=== PATIENT | female | born 1950 | race Caucasian/White ===

== ENCOUNTER 2020-09-12 09:04 | Outpatient (REF) | payer MEDICARE, SELFPAY ==
[2020-09-12 12:03] LABS: Estimated Average Glucose 134 mg/dL; Hemoglobin A1c % 6.3 %
== END 2020-09-12 09:05 | disposition home or self-care (01) ==
LOC: HO.MANLR 09:04
PROVIDERS: PCP Internal Medicine; Visit Provider Internal Medicine
DX: E11.9 Type 2 diabetes mellitus without complications (principal)
CPT/HCPCS: 83036

== ENCOUNTER 2021-01-12 09:32 | Outpatient (REF) | payer MEDICARE, SELFPAY ==
[2021-01-12 11:44] LABS: Estimated Average Glucose 131 mg/dL; Hemoglobin A1c % 6.2 %
== END 2021-01-12 09:33 | disposition home or self-care (01) ==
LOC: HO.MANLDS 09:32
PROVIDERS: PCP Internal Medicine; Visit Provider Internal Medicine
DX: E11.9 Type 2 diabetes mellitus without complications (principal)
CPT/HCPCS: 36415; 83036

== ENCOUNTER 2021-05-02 08:32 | Outpatient (REF) | payer MEDICARE, SELFPAY ==
[2021-05-02 11:36] LABS: Alanine Aminotransferase 9 U/L (0-31); Albumin Level 4.2 g/dL (3.5-5.0); Alkaline Phosphatase 61 U/L (39-117); Anion Gap 14 (12-20); Aspartate Amino Transferase 12 U/L (5-31); Bilirubin Total 0.4 mg/dL (0.0-1.0); Blood Urea Nitrogen 15 mg/dL (9-16); Calcium 9.5 mg/dL (8.4-10.2); Carbon Dioxide 25 mmol/L (22-29); Chloride 106 mmol/L (96-108); Cholesterol 159 mg/dL; Estimated Glomerular Filt Rate > 60; Glucose Fasting 170 mg/dL (60-99); HDL Cholesterol 60 mg/dL; LDL Cholesterol Calculated 80 mg/dl; Potassium 4.5 mmol/L (3.3-5.1); Sodium 140 mmol/L (135-145); Total Protein 6.8 g/dL (6.5-8.0); Triglycerides 95 mg/dL
[2021-05-02 11:37] LABS: Estimated Average Glucose 151 mg/dL; Hemoglobin A1c % 6.9 %
[2021-05-02 11:54] LABS: Creatinine Urine 32.13 mg/dL; Microalbumin Urine < 5.0 mg/L
== END 2021-05-02 08:33 | disposition home or self-care (01) ==
LOC: HO.MANLDS 08:32
PROVIDERS: PCP Internal Medicine; Visit Provider Internal Medicine
DX: E11.9 Type 2 diabetes mellitus without complications (principal)
CPT/HCPCS: 36415; 80053; 80061; 82043; 83036

== ENCOUNTER 2021-08-06 09:19 | Outpatient (REF) | payer MEDICARE, SELFPAY ==
[2021-08-06 11:27] LABS: Estimated Average Glucose 151 mg/dL; Hemoglobin A1c % 6.9 %
== END 2021-08-06 09:20 | disposition home or self-care (01) ==
LOC: HO.MANLDS 09:19
PROVIDERS: PCP Internal Medicine; Visit Provider Internal Medicine
DX: E11.9 Type 2 diabetes mellitus without complications (principal)
CPT/HCPCS: 36415; 83036

== ENCOUNTER 2021-11-07 09:24 | Outpatient (REF) | payer MEDICARE, SELFPAY ==
[2021-11-07 11:12] LABS: Estimated Average Glucose 157 mg/dL; Hemoglobin A1c % 7.1 %
[2021-11-07 11:31] LABS: Creatinine Urine 21.75 mg/dL; Microalbumin Urine < 5.0 mg/L
[2021-11-07 11:37] LABS: Alanine Aminotransferase 12 U/L (0-31); Albumin Level 4.3 g/dL (3.5-5.0); Alkaline Phosphatase 56 U/L (39-117); Anion Gap 15 (12-20); Aspartate Amino Transferase 13 U/L (5-31); Bilirubin Total 0.3 mg/dL (0.0-1.0); Blood Urea Nitrogen 14 mg/dL (9-16); Calcium 9.7 mg/dL (8.4-10.2); Carbon Dioxide 25 mmol/L (22-29); Chloride 104 mmol/L (96-108); Cholesterol 147 mg/dL; Estimated Glomerular Filt Rate > 60; Glucose Fasting 173 mg/dL (60-99); HDL Cholesterol 51 mg/dL; LDL Cholesterol Calculated 76 mg/dl; Potassium 4.5 mmol/L (3.3-5.1); Sodium 139 mmol/L (135-145); Total Protein 6.8 g/dL (6.5-8.0); Triglycerides 104 mg/dL
== END 2021-11-07 09:25 | disposition home or self-care (01) ==
LOC: HO.MANLDS 09:24
PROVIDERS: PCP Internal Medicine; Visit Provider Internal Medicine
DX: E11.9 Type 2 diabetes mellitus without complications (principal)
CPT/HCPCS: 36415; 80053; 80061; 82043; 83036

== ENCOUNTER 2022-03-08 10:00 | Outpatient (REF) | payer MEDICARE, SELFPAY ==
[2022-03-08 11:16] LABS: Estimated Average Glucose 163 mg/dL; Hemoglobin A1c % 7.3 %
[2022-03-08 11:50] LABS: Alanine Aminotransferase 14 U/L (0-31); Albumin Level 4.2 g/dL (3.5-5.0); Alkaline Phosphatase 70 U/L (39-117); Anion Gap 13 (12-20); Aspartate Amino Transferase 14 U/L (5-31); Bilirubin Total 0.4 mg/dL (0.0-1.0); Blood Urea Nitrogen 17 mg/dL (9-16); Calcium 9.6 mg/dL (8.4-10.2); Carbon Dioxide 26 mmol/L (22-29); Chloride 104 mmol/L (96-108); Cholesterol 164 mg/dL; Estimated Glomerular Filt Rate > 60; Glucose Fasting 192 mg/dL (60-99); HDL Cholesterol 47 mg/dL; LDL Cholesterol Calculated 99 mg/dl; Potassium 4.7 mmol/L (3.3-5.1); Sodium 138 mmol/L (135-145); Total Protein 6.8 g/dL (6.5-8.0); Triglycerides 91 mg/dL
== END 2022-03-08 10:01 | disposition home or self-care (01) ==
LOC: HO.MANLDS 10:00
PROVIDERS: PCP Internal Medicine; Visit Provider Internal Medicine
DX: E11.9 Type 2 diabetes mellitus without complications (principal)
CPT/HCPCS: 36415; 80053; 80061; 83036

== ENCOUNTER → 2022-03-27 10:52 | Outpatient (REF) | payer MEDICARE, SELFPAY ==
--- NOTE | 2022-03-27 11:06 | HM_ITS ---
TEST PERFORMED: Cardiac event monitoring. ENROLLMENT PERIOD: 03/27/2022, to 04/26/2022; 30 days. REQUESTING PHYSICIAN: Dr. Morley FINDINGS: In the above monitoring period, underlying rhythm is sinus. Rates ranged from 63 to 128 beats per minute. Isolated PVC noted. Otherwise, no significant arrhythmias. CONCLUSION: Study shows sinus rhythm, sinus tachycardia, isolated PVC. No patient symptoms. (report delayed as preliminary data not available till the time of this report) Efrain Rodríguez MD HS/LALO / [id number] MTDD
== END ==
LOC: HO.CARD 10:52
PROVIDERS: Visit Provider Internal Medicine
DX: R55 Syncope and collapse (principal)
CPT/HCPCS: 93270

== ENCOUNTER 2022-06-12 08:42 | Outpatient (REF) | payer MEDICARE, SELFPAY ==
[2022-06-12 11:25] LABS: Estimated Average Glucose 154 mg/dL
== END 2022-06-12 08:43 | disposition home or self-care (01) ==
LOC: HO.MANLDS 08:42
PROVIDERS: Visit Provider Internal Medicine
DX: E11.9 Type 2 diabetes mellitus without complications (principal)
CPT/HCPCS: 36415; 83036

== ENCOUNTER 2022-09-24 08:48 | Outpatient (REF) | payer MEDICARE, SELFPAY ==
[2022-09-24 11:30] LABS: Estimated Average Glucose 180 mg/dL; Hemoglobin A1c % 7.9 %
[2022-09-24 13:23] LABS: Alanine Aminotransferase 15 U/L (0-31); Albumin Level 4.3 g/dL (3.5-5.0); Alkaline Phosphatase 74 U/L (39-117); Anion Gap 14 (12-20); Aspartate Amino Transferase 14 U/L (5-31); Bilirubin Total 0.3 mg/dL (0.0-1.0); Blood Urea Nitrogen 13 mg/dL (9-16); Calcium 9.6 mg/dL (8.4-10.2); Carbon Dioxide 27 mmol/L (22-29); Chloride 103 mmol/L (96-108); Cholesterol 149 mg/dL; Estimated Glomerular Filt Rate > 60; Glucose Random 223 mg/dL (60-115); HDL Cholesterol 48 mg/dL; LDL Cholesterol Calculated 73 mg/dl; Potassium 4.8 mmol/L (3.3-5.1); Sodium 139 mmol/L (135-145); Total Protein 6.7 g/dL (6.5-8.0); Triglycerides 141 mg/dL
== END 2022-09-24 08:49 | disposition home or self-care (01) ==
LOC: HO.MANLDS 08:48
PROVIDERS: Visit Provider Internal Medicine
DX: E11.9 Type 2 diabetes mellitus without complications (principal)
CPT/HCPCS: 36415; 80053; 80061; 83036

== ENCOUNTER 2022-12-13 09:13 | Outpatient (REF) | payer MEDICARE, SELFPAY ==
[2022-12-13 12:15] LABS: Estimated Average Glucose 197 mg/dL; Hemoglobin A1c % 8.5 %
== END 2022-12-13 09:14 | disposition home or self-care (01) ==
LOC: HO.MANLDS 09:13
PROVIDERS: Visit Provider Internal Medicine
DX: E11.9 Type 2 diabetes mellitus without complications (principal)
CPT/HCPCS: 36415; 83036

== ENCOUNTER 2023-02-11 11:34 | Outpatient (REF) | payer MEDICARE, SELFPAY ==
[2023-02-11 13:52] LABS: MANUAL DIFF FLAG NO
[2023-02-11 14:12] LABS: Basophils Percent Auto 0.3 % (0-2); Eosinophils Percent Auto 0.5 % (0-4); Hematocrit 39.4 % (37.0-47.0); Hemoglobin 12.3 g/dl (12.0-16.0); Imm Gran Abs Auto 0.02 X10*3/uL (0.00-0.03); Imm Gran Pct Auto 0.3 % (0.0-0.4); Lymphocytes Absolute Auto 1.3 X10*3/uL (1.2-4.9); Lymphocytes Percent Auto 19.9 % (20-40); Mean Corpuscular HGB Conc 31.2 g/dl (31.0-35.0); Mean Corpuscular Hemoglobin 30.1 pg (27.0-33.0); Mean Corpuscular Volume 96.3 fL (80.0-98.0); Mean Platelet Volume 10.3 fL (9.4-12.3); Monocytes Absolute Auto 0.3 X10*3/uL (0.1-1.2); Monocytes Percent Auto 4.9 % (2-11); Neutrophils Absolute Auto 4.9 x10*3/uL (2.0-8.3); Neutrophils Percent Auto 74.1 % (45-73); Platelet Count 261 X10*3/uL (160-400); Red Blood Count 4.09 X10*6/uL (4.20-5.50); Red Cell Distribution Width 14.3 % (11.0-16.0); White Blood Count 6.6 X10*3/uL (4.8-10.8)
[2023-02-11 14:20] LABS: Estimated Average Glucose 157 mg/dL; Hemoglobin A1c % 7.1 %
[2023-02-11 15:00] LABS: Iron 62 mcg/dL (30-160); Percent Iron Saturation 20 % (15-50); Total Iron Binding Capacity 312 mcg/dL (228-428); Unsaturated Iron Binding 250 ug/dL
[2023-02-11 15:09] LABS: Ferritin 118 ng/mL (10-250)
== END 2023-02-11 11:35 | disposition home or self-care (01) ==
LOC: HO.MANLDS 11:34
PROVIDERS: Visit Provider Internal Medicine
DX: E11.9 Type 2 diabetes mellitus without complications (principal); D64.9 Anemia, unspecified
CPT/HCPCS: 36415; 82728; 83036; 83540; 85025

== ENCOUNTER 2023-05-05 09:09 | Outpatient (REF) | payer MEDICARE, SELFPAY ==
[2023-05-05 14:12] LABS: Alanine Aminotransferase 12 U/L (0-31); Albumin Level 4.3 g/dL (3.5-5.0); Alkaline Phosphatase 71 U/L (39-117); Anion Gap 14 (12-20); Aspartate Amino Transferase 14 U/L (5-31); Bilirubin Total 0.3 mg/dL (0.0-1.0); Blood Urea Nitrogen 14 mg/dL (9-16); Carbon Dioxide 26 mmol/L (22-29); Chloride 105 mmol/L (96-108); Cholesterol 174 mg/dL; Estimated Glomerular Filt Rate > 60; Glucose Random 190 mg/dL (60-115); HDL Cholesterol 42 mg/dL; LDL Cholesterol Calculated 107 mg/dl; Potassium 4.5 mmol/L (3.3-5.1); Sodium 140 mmol/L (135-145); Total Protein 7.3 g/dL (6.5-8.0); Triglycerides 129 mg/dL
[2023-05-05 14:14] LABS: Estimated Average Glucose 163 mg/dL; Hemoglobin A1c % 7.3 %
== END 2023-05-05 09:10 | disposition home or self-care (01) ==
LOC: HO.MANLDS 09:09
PROVIDERS: Visit Provider Internal Medicine
DX: E11.9 Type 2 diabetes mellitus without complications (principal); D64.9 Anemia, unspecified
CPT/HCPCS: 36415; 80053; 80061; 83036

== ENCOUNTER 2023-08-04 12:00 | Outpatient (REF) | payer MEDICARE, SELFPAY ==
[2023-08-04 13:58] LABS: Estimated Average Glucose 157 mg/dL; Hemoglobin A1c % 7.1 % (<6.0)
== END 2023-08-04 12:01 | disposition home or self-care (01) ==
LOC: HO.MANLDS 12:00
PROVIDERS: Visit Provider Internal Medicine
DX: E11.9 Type 2 diabetes mellitus without complications (principal); D64.9 Anemia, unspecified
CPT/HCPCS: 36415; 83036

== ENCOUNTER 2023-10-29 08:46 | Outpatient (REF) | payer MEDICARE, SELFPAY ==
[2023-10-29 14:10] LABS: Estimated Average Glucose 166 mg/dL; Hemoglobin A1c % 7.4 % (<6.0)
[2023-10-29 14:17] LABS: Alanine Aminotransferase 17 U/L (0-31); Albumin Level 4.4 g/dL (3.5-5.0); Alkaline Phosphatase 71 U/L (39-117); Anion Gap 11 (12-20); Aspartate Amino Transferase 16 U/L (5-31); Bilirubin Total 0.4 mg/dL (0.0-1.0); Blood Urea Nitrogen 19 mg/dL (9-16); Calcium 9.4 mg/dL (8.4-10.2); Carbon Dioxide 26 mmol/L (22-29); Chloride 105 mmol/L (96-108); Cholesterol 164 mg/dL (<200); Estimated Glomerular Filt Rate > 60; Glucose Random 194 mg/dL (60-115); HDL Cholesterol 54 mg/dL (>40); LDL Cholesterol Calculated 93 mg/dL (<100); Sodium 138 mmol/L (135-145); Total Protein 7.3 g/dL (6.5-8.0); Triglycerides 85 mg/dL (<150)
== END 2023-10-29 08:47 | disposition home or self-care (01) ==
LOC: HO.MANLDS 08:46
PROVIDERS: Visit Provider Internal Medicine
DX: E11.9 Type 2 diabetes mellitus without complications (principal); D64.9 Anemia, unspecified
CPT/HCPCS: 36415; 80053; 80061; 83036

== ENCOUNTER 2024-02-19 06:55 | Outpatient (REF) | payer MEDICARE, SELFPAY ==
--- NOTE | ~2024-02-19 | MR_ITS ---
EXAMINATION: MR KNEE WITHOUT CONTRAST, RIGHT CLINICAL INFORMATION: Acute pain swelling buckling of joint meniscal tear. COMPARISON: None available. TECHNIQUE: MRI of the knee without contrast was performed using routine sequences on a high-field scanner. FINDINGS: MENISCI: Medial Meniscus: Intact Lateral Meniscus: Intact LIGAMENTS: Cruciate: Intact Collateral: Intact EXTENSOR MECHANISM: Intact ARTICULAR CARTILAGE/BONE: Patellofemoral Compartment: Normal Medial Compartment: Normal Lateral Compartment: Normal JOINT FLUID AND BURSAE: Trace Beverly's cyst MR/MR knee RT wo con IMPRESSION: Trace Beverly's cyst. Menisci intact.
== END 2024-02-19 06:56 | disposition home or self-care (01) ==
LOC: HO.MRI 06:55
PROVIDERS: PCP Internal Medicine; Visit Provider Physician Assistant
DX: M25.561 Pain in right knee (principal)
CPT/HCPCS: 73721

== ENCOUNTER 2024-03-01 09:05 | Outpatient (REF) | payer MEDICARE, SELFPAY ==
[2024-03-01 13:44] LABS: Estimated Average Glucose 171 mg/dL; Hemoglobin A1c % 7.6 % (<6.0)
== END 2024-03-01 09:06 | disposition home or self-care (01) ==
LOC: HO.MANLDS 09:05
PROVIDERS: Visit Provider Internal Medicine
DX: E11.9 Type 2 diabetes mellitus without complications (principal)
CPT/HCPCS: 36415; 83036

== ENCOUNTER 2024-07-07 09:25 | Outpatient (REF) | payer MEDICARE, SELFPAY ==
[2024-07-07 12:59] LABS: Alanine Aminotransferase 19 U/L (0-31); Albumin Level 4.3 g/dL (3.5-5.0); Alkaline Phosphatase 60 U/L (39-117); Anion Gap 14 (12-20); Aspartate Amino Transferase 18 U/L (5-31); Bilirubin Total 0.4 mg/dL (0.0-1.0); Blood Urea Nitrogen 13 mg/dL (9-16); Calcium 9.6 mg/dL (8.4-10.2); Carbon Dioxide 26 mmol/L (22-29); Chloride 106 mmol/L (96-108); Cholesterol 169 mg/dL (<200); Estimated Glomerular Filt Rate > 60; Glucose Random 178 mg/dL (60-115); HDL Cholesterol 52 mg/dL (>40); LDL Cholesterol Calculated 90 mg/dL (<100); Potassium 4.4 mmol/L (3.3-5.1); Sodium 142 mmol/L (135-145); Total Protein 7.1 g/dL (6.5-8.0); Triglycerides 139 mg/dL (<150)
[2024-07-07 13:20] LABS: Creatinine Urine 16.44 mg/dL; Microalbumin Urine < 5.0 mg/L
[2024-07-07 15:39] LABS: Estimated Average Glucose 169 mg/dL; Hemoglobin A1c % 7.5 % (<6.0)
== END 2024-07-07 09:26 | disposition home or self-care (01) ==
LOC: HO.MANLDS 09:25
PROVIDERS: Visit Provider Internal Medicine
DX: E11.9 Type 2 diabetes mellitus without complications (principal)
CPT/HCPCS: 36415; 80053; 80061; 82043; 82570; 83036

== ENCOUNTER 2024-11-22 09:22 | Outpatient (REF) | payer MEDICARE, SELFPAY ==
[2024-11-22 13:36] LABS: Estimated Average Glucose 171 mg/dL; Hemoglobin A1C 241.3174 umol/L; Hemoglobin A1c % 7.6 % (<6.0); Total Hemoglobin (HGBA1C) 4076.4689 umol/L
[2024-11-22 13:58] LABS: Alanine Aminotransferase 21 U/L (0-31); Albumin Level 4.4 g/dL (3.5-5.0); Alkaline Phosphatase 81 U/L (39-117); Anion Gap 14 (12-20); Aspartate Amino Transferase 25 U/L (5-31); Bilirubin Total 0.4 mg/dL (0.0-1.0); Blood Urea Nitrogen 15 mg/dL (9-16); Calcium 9.4 mg/dL (8.4-10.2); Carbon Dioxide 22 mmol/L (22-29); Chloride 110 mmol/L (96-108); Cholesterol 158 mg/dL (<200); Estimated Glomerular Filt Rate > 60; Glucose Random 167 mg/dL (60-115); HDL Cholesterol 54 mg/dL (>40); LDL Cholesterol Calculated 89 mg/dL (<100); Potassium 4.2 mmol/L (3.3-5.1); Sodium 142 mmol/L (135-145); Total Protein 7.6 g/dL (6.5-8.0); Triglycerides 78 mg/dL (<150)
== END 2024-11-22 09:23 | disposition home or self-care (01) ==
LOC: HO.MANLDS 09:22
PROVIDERS: Visit Provider Internal Medicine
DX: E11.9 Type 2 diabetes mellitus without complications (principal)
CPT/HCPCS: 36415; 80053; 80061; 82043; 82570; 83036

== ENCOUNTER 2025-03-09 09:06 | Outpatient (REF) | payer MEDICARE, SELFPAY ==
[2025-03-09 13:37] LABS: Estimated Average Glucose 186 mg/dL; Hemoglobin A1C 238.7847 umol/L; Hemoglobin A1c % 8.1 % (<6.0); Total Hemoglobin (HGBA1C) 3647.7639 umol/L
== END 2025-03-09 09:07 | disposition home or self-care (01) ==
LOC: HO.MANLDS 09:06
PROVIDERS: Visit Provider Internal Medicine
DX: E11.9 Type 2 diabetes mellitus without complications (principal)
CPT/HCPCS: 36415; 83036

== ENCOUNTER 2025-07-26 09:25 | Outpatient (REF) | payer MEDICARE, SELFPAY ==
--- OUTSIDE RECORDS SUMMARY | 2025-07-26 10:22 | XMS_ITS | Encounter Summary ---
Author Organization [facility] Address [address] [place] [address] [place] [address] Phone Care Team Providers Care Beater Lead Name Role Phone Isael Morley DO Unavailable Spencer Lewis MD Unavailable [phone] Paresh Montaño MD Unavailable [phone] Arik Peña PA-C Unavailable [phone] Ray Tong MD Unavailable [phone] Isael Morlye DO Primary Care Provider [phone] Reason for Referral * Outpatient Procedure - Closed Specialty Diagnoses / Procedures Referred By Jillian vance Referred To Contact Radiology Diagnoses Chondrocostal junction syndrome Procedures NM Bone Scan Limited Isael Morley DO Phone: tel: fax: [email or web address] Referral ID Status Reason Start Date Expiration Date Visits Re quested Visits Authorized [id number] Closed 01/23/2018 01/23/2019 1 1 Encounter Details Date Type Department Care Team (Late st Contact Info) Description 01/23/2018 Ancillary Orders Virtual Department [address] [place] [address] Isael Morley DO [address] [facility] [place] [address] [email or web address] Chondrocostal junction syndrome Social History Tobacco Use Types Packs/Day Years Used Date Smoking Tobacco: Former Smokeless Tobacco: Never Alcohol Use Standard Drinks/Week Comments Yes 0 (1 standard drink = 0.6 oz pur e alcohol) Comments Unknown Sex and Gender Information Value Date Recorded Sex Assigned at Not on file Legal Sex Female 10:03 PM EDT Gender Identity Not on file Sexual Orientation Not on file documented as of this encounter Plan of Treatment Upcoming Encounters Date Type Department Care Team (Late st Contact Info) Description 09/14/2025 11:00 AM EST Office Visit [facility] [address] [facility] 3rd Floor, [address] [place] [address] Spencer Lewis MD [address] [facility], [address] [place] [address] [email or web address], [employer] documented as of this encounter Results * NM Bone Scan Limited (02/04/2018 2:38 PM EDT) Anatomical Region Laterality Modality Shoulder Right, Shoulder Lef t, Arm Left, Arm Right, Elbow Left, Elbow Right, Forearm Left, Forearm Right, Wrist Right, Wrist Left, Hand Left, Hand Right, Hip Left, Hip Right, Hip Bilateral, Thigh Left, Thigh Right, Knee Left, Knee Right, Knee Bilateral, Leg Left, Leg Right, Ankle Left, Ankle Right, Foot Left, Foot Right, Pelvis Nucle ar Medicine 02/04/2018 3:29 PM EDT Impressions 02/04/2018 4:46 PM EDT No scintigraphic abnormality involving the ribs. POS [id number] Edited by: Sarah Coleman on 02/04/2018 3:52 PM Narrative 02/04/2018 4:46 PM EDT HISTORY: Occasional bilateral rib pain when bending over, symptoms for 2 years. Now with severe bilateral rib pain for one month. No known injury. No previous cancer history. COMPARISON: None CORRELATION: Rib radiographs 01/06/2018 DOSE: 24 mCi of Tc-99m Medronate FINDINGS: Three-hour delayed imaging is performed. Images are obtained in anterior, posterior, lateral, and oblique positions. No abnormal uptake within the ribs. Minimal heterogeneous uptake within the thoracic spine which corresponds with degenerative changes on radiography. There is also stable thoracic kyphosis. Two functioning kidneys are present. Procedure Note Darlene Gonzalez MD - 02/04/2018 HISTORY: Occasional bilateral rib pain when bending over, symptoms for 2years. Now with severe bilateral rib pain for one month. No knowninjury. No previous cancer history. COMPARISON: None CORRELATION: Rib radiographs 01/06/2018 DOSE: 24 mCi of Tc-99m Medronate FINDINGS: Three-hour delayed imaging is performed. Images are obtained in anterior,posterior, lateral, and oblique positions. No abnormal uptake within the ribs. Minimal heterogeneous uptake withinthe thoracic spine which corresponds with degenerative changes onradiography. There is also stable thoracic kyphosis. Two functioningkidneys are present. IMPRESSION: No scintigraphic abnormality involving the ribs. 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 documented in this encounter Care Teams Beater Lead Relationship Specialty Start Date End Date Isael Morley DO PCP - General 07/31/17 Isael Morley DO Historical LMR Provider 07/30/17 Spencer Lewis MD [address] [place] [address], [facility] [address] [place] [address] Historical LMR Provider 07/30/17 Paresh Montaño MD [address] [place] [address] Historical LMR Provider 07/30/17 Arik Peña PA-C [address] [place] [address] [facility], [place] [address] [email or web address] Historical LMR Provider 07/30/17 10/20/21 Ray Tong MD [address] [place] [address] Historical LMR Provider 07/30/17 2 documented as of this encounter Additional Source Comments The information contained in this document represents components of the legal health record. It is not the complete legal health record.[facility]
--- OUTSIDE RECORDS SUMMARY | 2025-07-26 10:22 | XMS_ITS | Encounter Summary ---
Author Organization [facility] Address [address] [place] [address] [place] [address] Phone Care Team Providers Care Associate Genetics Professor Name Role Phone Isael Morley DO Unavailable Spencer Lewis MD Unavailable [phone] Paresh Montaño MD Unavailable [phone] Arik Peña PA-C Unavailable [phone] Ray Tong MD Unavailable [phone] Isael Morley DO Primary Care Provider [phone] Encounter Details Date Type Department Care Team (Late st Contact Info) Description 05/30/2020 Procedure Pass [facility], [address] [address] Social History Tobacco Use Types Packs/Day Years Used Date Smoking Tobacco: Former Smokeless Tobacco: Never Alcohol Use Standard Drinks/Week Comments Yes 0 (1 standard drink = 0.6 oz pur e alcohol) Comments No Sex and Gender Information Value Date Recorded Sex Assigned at Not on file Legal Sex Female 10:03 PM EDT Gender Identity Not on file Sexual Orientation Not on file documented as of this encounter Plan of Treatment Upcoming Encounters Date Type Department Care Team (Late st Contact Info) Description 09/14/2025 11:00 AM EST Office Visit [facility] [address] [place] [address] 3rd Floor, [address] [place] [phone] Spencer Lewis MD 22 [facility], [address] [phone] documented as of this encounter Visit Diagnoses Not on filedocumented in this encounter Care Teams Associate Genetics Professor Relationship Specialty Start Date End Date Peyman Isael BarajasDO PCP - General 07/31/17 Isael Morley DO Historical LMR Provider 07/30/17 Spencer Lewis MD [address] [place] [address] [email or web address] Historical LMR Provider 07/30/17 Paresh Montaño MD [address] [place] [address] Historical LMR Provider 07/30/17 Arik Peña PA-C [address] [place] [address] [facility] Medicine, [place] [address] [email or web address] Historical LMR Provider 07/30/17 10/20/21 Ray Tong MD [address] [place] [address] Historical LMR Provider 07/30/17 2 documented as of this encounter Additional Source Comments The information contained in this document represents components of the legal health record. It is not the complete legal health record.[facility]
--- OUTSIDE RECORDS SUMMARY | 2025-07-26 10:22 | XMS_ITS | Encounter Summary ---
Author Organization [facility] Address [address] [place] [address] [place] [address] Phone Care Team Providers Care Personnel Assistant Name Role Phone Isael Morley DO Unavailable Spencer Lewis MD Unavailable [phone] Paresh Montaño MD Unavailable [phone] Arik Peña PA-C Unavailable [phone] Ray Tong MD Unavailable [phone] Isael Morley DO Primary Care Provider [phone] Encounter Details Date Type Department Care Team (Late st Contact Info) Description 05/30/2020 Procedure Pass [facility], [address] [address] Social History Tobacco Use Types Packs/Day Years [...] Description 09/14/2025 11:00 AM EST Office Visit [facility] [address] [place] [address] 3rd Floor, [address] [place] [address] [phone] Spencer Lewis MD 22 [facility], [address] [phone] documented as of this encounter Visit Diagnoses Not on filedocumented in this encounter Care Teams Personnel Assistant Relationship Specialty Start Date End Date Peyman Isael BarajasDO PCP - General 07/31/17 Isael Morley DO Historical LMR Provider 07/30/17 Spencer Lewis MD [address] [place] [address] [email or web address] Historical LMR Provider 07/30/17 Paresh Montaño MD [address] [place] [address] Historical LMR Provider 07/30/17 Arik Peña PA-C [address] [place] [address] [facility] Medicine, [place] [address] [email or web address] Historical LMR Provider 07/30/17 10/20/21 Ray Tong MD [address] [place] [address] Historical LMR Provider 07/30/17 2 documented as of this encounter Additional Source Comments The information contained in this document represents components of the legal health record. It is not the complete legal health record.[facility]
--- OUTSIDE RECORDS SUMMARY | 2025-07-26 10:22 | XMS_ITS | Encounter Summary ---
Author Organization [facility] Address [address] [facility] [address] [place] [address] Phone Care Team Providers Care Waiter/Waitress Cabin Class Name Role Phone Isael Morley DO Unavailable Spencer Lewis MD Unavailable [phone] Paresh Montaño MD Unavailable [phone] Arik Peña PA-C Unavailable [phone] Ray Tong MD Unavailable [phone] Isael Morley DO Primary Care Provider [phone] Encounter Details Date Type Department Care Team (Late st Contact Info) Description 01/06/2018 Ancillary Orders [facility], X-Ray - [address] [phone] Isael Morley DO [address] [facility] [place], [place] [phone] [email or web address] Rib pain Social History Tobacco Use Types Packs/Day Years [...] Description 09/14/2025 11:00 AM EST Office Visit [facility] [address] [place] [address] 3rd Floor, [address] [place], [place] [phone] Spencer Lewis MD [address] [place] [address], [address] [place] [address] [email or web address] documented as of this encounter Results * XR RIBS 3 VIEW (BILATERAL) (01/06/2018 1:25 PM EDT) Anatomical Region Laterality Modality Chest Radiographic Eufemia ging 01/06/2018 1:28 PM EDT Addenda Addendum by Daniel Cuellar MD on 01/26/2018 10:48 AM EDT COMPARISON: None. FINDINGS: Nine views of the ribs are obtained. Images of both left and right ribs are present. No complication of an occult rib injury is seen. No rib deformity or acute bony injury is seen. No destructive process of bone is evident. IMPRESSION: Unremarkable evaluation of the ribs. No <<< EXPLANATION >>> for chest wall pain is seen on either side. S/S: Bilateral chest wall/rib pain x2 years, no trauma. POS - [id number] Edited by: Rosa Francisco on 01/26/2018 9:46 AM Impressions 01/06/2018 1:37 PM EDT Unremarkable evaluation of the ribs. No expiration for chest wall pain is seen on either side. S/S: Bilateral chest wall/rib pain x2 years, no trauma POS - [id number] Narrative 01/06/2018 1:37 PM EDT COMPARISON: None FINDINGS: 9 views of the ribs are obtained. Images of both left and right ribs are present. No complication of an occult rib injury is seen. No rib deformity or acute bony injury is seen. No destructive process of bone is evident. Procedure Note Daniel Cuellar MD - 01/06/2018 COMPARISON: None FINDINGS: 9 views of the ribs are obtained. Images of both left and right ribs arepresent. No complication of an occult rib injury is seen. No rib deformity or acute bony injury is seen. No destructive process ofbone is evident. IMPRESSION: Unremarkable evaluation of the ribs. No expiration for chest wall pain isseen on either side. S/S: Bilateral chest wall/rib pain x2 years, no trauma POS - [id number] us Isael Morley DO IMG XR CHEST Edited Result - Final documented in this encounter Visit Diagnoses Diagnosis Rib pain Unspecified chest pain Rib pain Unspecified chest pain documented in this encounter Care Teams Waiter/Waitress Cabin Class Relationship Specialty Start Date End Date Isael Morley DO PCP - General 07/31/17 Isael Morley DO Historical LMR Provider 07/30/17 Spencer Lewis MD [address] [place] [address] Historical LMR Provider 07/30/17 Paresh Montaño MD [address] [place] [address] Historical LMR Provider 07/30/17 Arik Peña PA-C [address] [place] [address] [facility] Medicine, [place] [address] Historical LMR Provider 07/30/17 10/20/21 Ray Tong MD [address] [place] [address] Historical LMR Provider 07/30/17 2 documented as of this encounter Additional Source Comments The information contained in this document represents components of the legal health record. It is not the complete legal health record.[facility]
--- OUTSIDE RECORDS SUMMARY | 2025-07-26 10:22 | XMS_ITS | Encounter Summary ---
Author Organization [facility] Address [address] [facility] [address] [place] [address] Phone Care Team Providers Care Well Tender Name Role Phone Isael Morley DO Unavailable Spencer Lewis MD Unavailable [phone] Paresh Montaño MD Unavailable [phone] Arik Peña PA-C Unavailable [phone] Ray Tong MD Unavailable [phone] Isael Morley DO Primary Care Provider [phone] Encounter Details Date Type Department Care Team (Latest Contact Info) Description 03/10/2018 Transcribe Orders [facility] [address] [place] [address] [phone] Suhas Gongora, DO [address] [place] [address] [email or web address] Polyarthropathy (Primary Dx) Social History Tobacco Use Types Packs/Day Years [...] Description 09/14/2025 11:00 AM EST Office Visit [facility] [address] [place] [address] 3rd Floor, [address] [place], [place] [phone] Spencer Lewis MD [address] [facility], [address] [place] [address] [email or web address] documented as of this encounter Results * (ABNORMAL) Basic metabolic panel (03/10/2018 9:41 AM EDT) SODIUM 138 133 - 146 mmol/L [facility] CHLORIDE 99 96 - 108 mmol/L [facility] POTASSIUM 4.7 3.3 - 5.1 mmol/L [facility] CO2 26 21 - 35 mmol/L [facility] BUN 18 6 - 19 mg/dL [facility] CREATININE 0.80 0.5 - 1.5 mg/dL [facility] GLUCOSE 234(H) 70 - 99 mg/dL [facility] CALCIUM 9.8 8.4 - 10.3 mg/dL [facility] EGFR 76 >59 mL/min/1.7 3m2 [facility] Comment:If patient is black, multiply result by 1.159. The eGFR calculation has changed from the MDRD equation to the CKD-EPI equation as of December 16, 2017. ANION GAP 18 10 - 20 mmol/L [facility] Blood 03/10/2018 9:41 AM EDT 03/10/2018 10:22 AM EDT us Suhas Gongora DO LAB BLOOD ORDERABLES Final R esult [facility] [address] [place] [address] * CBC and differential (03/10/2018 9:41 AM EDT) WBC 6.97 3.40 - 11.20 K/uL [facility] RBC 4.76 3.80 - 4.80 M/uL [facility] HGB 14.2 12.0 - 15.0 g/dL [facility] HCT 43.8 36.0 - 46.0 % [facility] PLT 273 130 - 400 K/uL [facility] MCV 92.0 79.0 - 98.0 fL [facility] MCH 29.8 27.0 - 34.8 pg [facility] MCHC 32.4 31.5 - 36.0 g/dL [facility] RDW 12.8 10.8 - 14.6 % [facility] MPV 9.9 9.4 - 12.4 [facility] NRBC 0.00 /100 WBCs [facility] ABSOLUTE NRBC 0.00 K/uL [facility] DIFF METHOD Auto [facility] NEUTS 67.7 45.30 - 77.70 % [facility] LYMPHS 25.7 12.30 - 39.70 % [facility] MONOS 5.2 4.10 - 12.80 % [facility] EOS 0.7 0 - 7.2 % [facility] BASOS 0.4 0 - 2.80 % [facility] Granulocytes, immature (%) 0.3 0.0 - 0.9 % [facility] ABSOLUTE NEUTS 4.72 1.40 - 7.70 K/uL [facility] ABSOLUTE LYMPHS 1.79 0.60 - 3.20 K/uL [facility] ABSOLUTE MONOS 0.36 0.11 - 0.59 K/uL [facility] ABSOLUTE EOS 0.05 0.01 - 0.50 K/uL [facility] ABSOLUTE BASOS 0.03 0.00 - 0.08 K/uL [facility] Granulocytes, immature 0.02 0.00 - 0.05 K/uL [facility] Blood 03/10/2018 9:41 AM EDT 03/10/2018 10:22 AM EDT us Suhas Gongora DO LAB BLOOD ORDERABLES Final R esult [facility] [address] [place] [address] * Rheumatoid factor (03/10/2018 9:41 AM EDT) RHEUMATOID FACTOR <10.0 0.0 - 14.0 IU/ml [facility] Blood 03/10/2018 9:41 AM EDT 03/10/2018 10:22 AM EDT Suhas Gongora DO LAB BLOOD ORDERABLES Final R esult Performing Organization Address City/[facility]/ZIP Co de Phone Number [address] [address] * Antinuclear antibody (LAURI) (03/10/2018 9:41 AM EDT) LAURI SCREEN ON HEP 2 Negative Negative [facility] Blood 03/10/2018 9:41 AM EDT 03/10/2018 10:22 AM EDT Suhas Gongora DO LAB BLOOD ORDERABLES Final R esult Performing Organization Address [facility] Co de Phone Number [address] [address] * CCP IgG antibodies (03/10/2018 9:41 AM EDT) CCP AB, S <15.6 <20.0 (Negative) U [facility] DPT OF LAB MED AND PAT+ Blood 03/10/2018 9:41 AM EDT 03/10/2018 10:22 AM EDT Suhas Gongora DO LAB BLOOD ORDERABLES Final R esult Performing Organization Address [facility] Co de Phone Number [facility] DPT OF LAB MED AND PAT+ [address] [place] [address] * C-Reactive Protein (03/10/2018 9:41 AM EDT) C REACTIVE PROTEIN 1.6 0.0 - 4.0 mg/L [facility] Comment:New Reference Range and Measuring Units effective 02/25/18. Blood 03/10/2018 9:41 AM EDT 03/10/2018 10:22 AM EDT Suhas Gongora DO LAB BLOOD ORDERABLES Final R esult Performing Organization Address City/[facility]/ZIP Co de Phone Number [address] [address] * Sedimentation rate (ESR) (03/10/2018 9:41 AM EDT) ESR 8 0 - 30 mm/h [facility] Blood 03/10/2018 9:41 AM EDT 03/10/2018 10:22 AM EDT us Suhas Gongora DO LAB BLOOD ORDERABLES Final R esult [facility] [address] [place] [address] documented in this encounter Visit Diagnoses Diagnosis Polyarthropathy- Primary Unspecified polyarthropathy or polyarthritis, site unspecified documented in this encounter Care Teams Well Tender Relationship Specialty Start Date End Date Isael Morley DO PCP - General 07/31/17 Isael Morley DO Historical LMR Provider 07/30/17 Spencer Lewis MD [address] [place] [address] Historical LMR Provider 07/30/17 Paresh Montaño MD [address] [place] [address] Historical LMR Provider 07/30/17 Arik Peña PA-C [address] [place] [address] Orthopedics & Sports Medicine, [facility] [place] [address] Historical LMR Provider 07/30/17 10/20/21 Ray Tong MD [address] [place] [address] [place] [address] Historical LMR Provider 07/30/17 2 documented as of this encounter Additional Source Comments The information contained in this document represents components of the legal health record. It is not the complete legal health record.[facility]
--- OUTSIDE RECORDS SUMMARY | 2025-07-26 10:24 | XMS_ITS | Encounter Summary ---
Author Organization [facility] Address [address] [place] [address] [place] [address] Phone Care Team Providers Care Valve Liner Rubber Name Role Phone Isael Morley DO Unavailable Spencer Lewis MD Unavailable [phone] Paresh Montaño MD Unavailable [phone] Arik Peña PA-C Unavailable [phone] Ray Tong MD Unavailable [phone] Isael Morley DO Primary Care Provider [phone] Encounter Details Date Type Department Care Team (Late st Contact Info) Description 12/10/2017 Procedure Pass [facility], Ct Scan - [address] [address] Social History Tobacco Use Types Packs/Day Years [...] Description 09/14/2025 11:00 AM EST Office Visit [facility] [address] [place] [address] 3rd Floor, [address] [place], [place] [phone] Spencer Lewis MD 22 [facility], [address] [place] [phone] documented as of this encounter Visit Diagnoses Not on filedocumented in this encounter Care Teams Valve Liner Rubber Relationship Specialty Start Date End Date Peyman Isael BarajasDO PCP - General 07/31/17 Isael Morley DO Historical LMR Provider 07/30/17 Spencer Lewis MD [address] [place] [address] [email or web address] Historical LMR Provider 07/30/17 Paresh Montaño MD [address] [place] [address] Historical LMR Provider 07/30/17 Arik Peña PA-C [address] [place] [address] [facility], [place] [address] [email or web address] Historical LMR Provider 07/30/17 10/20/21 Ray Tong MD [address] [place] [address] Historical LMR Provider 07/30/17 2 documented as of this encounter Additional Source Comments The information contained in this document represents components of the legal health record. It is not the complete legal health record.[facility]
--- OUTSIDE RECORDS SUMMARY | 2025-07-26 10:24 | XMS_ITS | Encounter Summary ---
Author Organization [facility] Address [address] [facility] [address] [place] [address] Phone Care Team Providers Care Flight Physician Name Role Phone Isael Morley DO Unavailable Spencer Lewis MD Unavailable [phone] Isael Morley DO Primary Care Provider [phone] Encounter Details Date Type Department Care Team (Late Contact Info) Description 03/15/2022 Transcribe Orders Virtual Department [address] [place] [address] Isael Morley DO [address] [facility] [address] [place] [address] Breast screening (Primary Dx) Social History Tobacco Use Types [...] Encounters Date Type Department Care Team (Late Contact Info) Description 09/14/2025 11:00 AM EST Office Visit [facility] [address] [facility] 3rd Floor, [address] [place], [place] [id number] Spencer Lewis MD [address] [facility], [address] [place], [place] [phone] documented as of this encounter Results * BI MAMMOGRAM SCREENING WITH TOMOSYNTHESIS WITH CAD (BILATERAL) (05/24/2022 9:40 AM EDT) Anatomical Region Laterality Modality Breast Left, Breast Right, Breast Bilateral Bila teral Mammography 05/24/2022 10:1 4 AM EDT Impressions 05/24/2022 4:02 PM EDT No mammographic evidence of malignancy. Recommend routine annual surveillance. BI-RADS CATEGORY: 2 - Benign finding. DENSITY: There are scattered fibroglandular densities. Narrative 05/24/2022 4:02 PM EDT 71-year-old female. Comparison made to previous on 10/26/2018 and as far back as 09/24/2007. Interpretation made in conjunction with computer-aided detection and tomosynthesis. There are scattered areas of fibroglandular density. Mild increase in number of benign bilateral secretory calcifications. There are no suspicious masses, areas of architectural distortion, or suspicious clusters of microcalcifications. Procedure Note Law Watson MD - 05/24/2022 71-year-old female. Comparison made to previous on 10/26/2018 and as farback as 09/24/2007. Interpretation made in conjunction withcomputer-aided detection and tomosynthesis. There are scattered areas of fibroglandular density. Mild increase innumber of benign bilateral secretory calcifications. There are no suspicious masses, areas of architectural distortion, orsuspicious clusters of microcalcifications. IMPRESSION: No mammographic evidence of malignancy. Recommend routine annualsurveillance. BI-RADS CATEGORY: 2 - Benign finding. DENSITY: There are scattered fibroglandular densities. Isael Morley DO IMG MG EXAMS Final Result documented in this encounter Visit Diagnoses Diagnosis Breast screening- Primary Breast screening, unspecified Breast screening Breast screening, unspecified documented in this encounter Care Teams Flight Physician Relationship Specialty Start Date End Date Isael Morley DO [email or web address] PCP - General 07/31/17 Isael Morley DO Historical LMR Provider 07/30/17 Spencer Lewis MD [address] [place] [address] [email or web address] Historical LMR Provider 07/30/17 documented as of this encounter Additional Source Comments The information contained in this document represents components of the legal health record. It is not the complete legal health record.[facility]
--- OUTSIDE RECORDS SUMMARY | 2025-07-26 10:24 | XMS_ITS | Encounter Summary ---
Author Organization [facility] Address [address] [place] [address] [place] [address] Phone Care Team Providers Care Game Moderator Name Role Phone Isael Morley DO Unavailable Spencer Lewis MD Unavailable [phone] Isael Morley DO Primary Care Provider [phone] Encounter Details Date Type Department Care Team (Late st Contact Info) Description 03/15/2022 Procedure Pass [facility], [address] [address] Social History Tobacco Use Types Packs/Day Years [...] Description 09/14/2025 11:00 AM EST Office Visit [facility] [address] [place] [address] 3rd Floor, [address] [place] [address] Spencer Lewis MD [address] [facility], [address] [place] [address] documented as of this encounter Visit Diagnoses Not on filedocumented in this encounter Care Teams Game Moderator Relationship Specialty Start Date End Date Isael Morley DO [email or web address] PCP - General 07/31/17 Isael Morley DO [email or web address] Historical LMR Provider 07/30/17 Spencer Lewis MD [address] [place] [address] [email or web address] Historical LMR Provider 07/30/17 documented as of this encounter Additional Source Comments The information contained in this document represents components of the legal health record. It is not the complete legal health record.[facility]
--- OUTSIDE RECORDS SUMMARY | 2025-07-26 10:24 | XMS_ITS | Encounter Summary ---
Author Organization [facility] Address [address] [place] [address] [place] [address] Phone Care Team Providers Care Water Meter Installer Name Role Phone Isael Morley DO Unavailable Spencer Lewis MD Unavailable [phone] Paresh Montaño MD Unavailable [phone] Arik Peña PA-C Unavailable [phone] Ray Tong MD Unavailable [phone] Isael Morley DO Primary Care Provider [phone] Reason for Referral * MRI/CAT Scan - Closed Specialty Diagnoses / Procedures Referred By Contcarlito t Referred To Contact Radiology Diagnoses Right upper quadrant pain Procedures CT Abdomen Only (No Pelvis) Alta De La Cruz CNP Phone: tel: fax: [email or web address]:[email or web address] Referral ID Status Reason Start Date Expiration Date Visits Re quested Visits Authorized [id number] Closed 12/10/2017 02/08/2018 1 1 Encounter Details Date Type Department Care Team (Late st Contact Info) Description 12/10/2017 Ancillary Orders Virtual Department 30 [place] [address] Alta De La Cruz CNP [address] [place] [id number] [email or web address] Right upper quadrant pain Social History Tobacco Use Types Packs/Day [...] Description 09/14/2025 11:00 AM EST Office Visit [facility] [address] [facility] 3rd Floor, [address] [place] [address] Spencer Lewis MD [address] [facility], [address] [place] [address] [email or web address] Complete documented as of this encounter Results * CT ABDOMEN WITH CONTRAST (12/17/2017 10:47 AM EST) Anatomical Region Laterality Modality Abdomen, Abdominal Vasculature C omputed Tomography 12/17/2017 10:5 1 AM EST Impressions 12/17/2017 11:05 AM EST 1. Stable hepatic steatosis. 2. Small perisplenic fluid collection which may represent a chronic perisplenic or subcapsular hematoma. 3. Indeterminate 8 mm low density filling defect within the proximal jejunum. Differential includes artifact or a small bowel mass such as a lipoma. Endoscopy is recommended. 4. Small hiatal hernia and mild distal esophageal thickening which could be due to reflux esophagitis. 5. Additional findings as outlined. TOTAL CTDIvol: 11 mGy POS - [id number] Narrative 12/17/2017 11:05 AM EST COMPARISON: No prior CT abdomen. CT chest 11/12/2012 and limited abdomen ultrasound 12/03/2017. TECHNIQUE: After the administration of oral and intravenous contrast, scanning is obtained from dome of the liver to the iliac crests. Sagittal and coronal reformats generated. Automated exposure control utilized. CT ABDOMEN FINDINGS: Lung bases/heart: Heart is normal in size. No pericardial effusion. Lung bases are clear. Spleen: Spleen is normal in size. There is perisplenic low density within the anterior upper and mid spleen measuring up to 1 cm. This may represent a chronic perisplenic/subscapular hematoma. Correlate with clinical history. Liver: Mild diffuse low-attenuation representing steatosis. Gallbladder/biliary tree: Normal. Pancreas: Normal. Adrenal glands: Normal. Vasculature: Advanced diffuse arterial calcified plaque. No AAA or acute findings. Genitourinary: Right kidney is normal. There is a 1.1 cm simple exophytic left upper renal pole cyst. Gastrointestinal tract: Small hiatal hernia with mild distal esophageal wall thickening which may be due to reflux esophagitis. Stomach is normal. There is a 8 mm low density filling defect within the proximal jejunum which is of indeterminate etiology. Moderate diffuse colonic stool volume. Peritoneum/retroperitoneum: No lymphadenopathy, ascites or fluid collections. Musculoskeletal: Large habitus. Small umbilical hernia. No advanced bony degenerative changes or destructive bone lesion. Procedure Note Viral Orellana MD - 12/17/2017 COMPARISON: No prior CT abdomen. CT chest 11/12/2012 and limited abdomenultrasound 12/03/2017. TECHNIQUE: After the administration of oral and intravenous contrast,scanning is obtained from dome of the liver to the iliac crests. [place] coronal reformats generated. Automated exposure control utilized. CT ABDOMEN FINDINGS: Lung bases/heart: Heart is normal in size. No pericardial effusion. Lungbases are clear. Spleen: Spleen is normal in size. There is perisplenic low density withinthe anterior upper and mid spleen measuring up to 1 cm. This mayrepresent a chronic perisplenic/subscapular hematoma. Correlate withclinical history. Liver: Mild diffuse low-attenuation representing steatosis. Gallbladder/biliary tree: Normal. Pancreas: Normal. Adrenal glands: Normal. Vasculature: Advanced diffuse arterial calcified plaque. No AAA or acutefindings. Genitourinary: Right kidney is normal. There is a 1.1 cm simple exophyticleft upper renal pole cyst. Gastrointestinal tract: Small hiatal hernia with mild distal esophagealwall thickening which may be due to reflux esophagitis. Stomach isnormal. There is a 8 mm low density filling defect within the proximaljejunum which is of indeterminate etiology. Moderate diffuse colonicstool volume. Peritoneum/retroperitoneum: No lymphadenopathy, ascites or fluidcollections. Musculoskeletal: Large habitus. Small umbilical hernia. No advanced bonydegenerative changes or destructive bone lesion. IMPRESSION: 1. Stable hepatic steatosis. 2. Small perisplenic fluid collection which may represent a chronicperisplenic or subcapsular hematoma. 3. Indeterminate 8 mm low density filling defect within the proximaljejunum. Differential includes artifact or a small bowel mass such as alipoma. Endoscopy is recommended. 4. Small hiatal hernia and mild distal esophageal thickening which couldbe due to reflux esophagitis. 5. Additional findings as outlined. TOTAL CTDIvol: 11 mGy POS - [id number] us Alta De La Cruz HERBARIUM WORKER IMG CT XSPECIALTY ORDERABLE S Final Result documented in this encounter Visit Diagnoses Diagnosis Right upper quadrant pain Abdominal pain, right upper quadrant Right upper quadrant pain Abdominal pain, right upper quadrant documented in this encounter Care Teams Water Meter Installer Relationship Specialty Start Date End Date Isael Morley DO PCP - General 07/31/17 Isael Morley DO Historical LMR Provider 07/30/17 Spencer Lewis MD [address] [place] [address] Historical LMR Provider 07/30/17 Paresh Montaño MD [address] [place] [address] Historical LMR Provider 07/30/17 Arik Peña PA-C [address] [place] [address] [facility], [place] [address] [email or web address] Historical LMR Provider 07/30/17 10/20/21 Ray Tong MD [address] [place] [address] [place] [address] Historical LMR Provider 07/30/17 2 documented as of this encounter Additional Source Comments The information contained in this document represents components of the legal health record. It is not the complete legal health record.[facility]
--- OUTSIDE RECORDS SUMMARY | 2025-07-26 10:24 | XMS_ITS | Encounter Summary ---
Author Organization [facility] Address [address] [facility] [address] [place] [address] Phone Care Team Providers Care Psychological Stress Evaluator Name Role Phone Isael Morley DO Unavailable Spencer Lewis MD Unavailable Paresh Montaño MD Unavailable Arik Peña PA-C Unavailable [phone] Ray Tong MD Unavailable [phone] Isael Morley DO Primary Care Provider [phone] Encounter Details Date Type Department Care Team (Late Contact Info) Description 05/03/2020 Transcribe Orders Virtual Department 30 [place] [address] Isael Morley DO [address] [facility] [place] [address] [place] [address] Dizziness and giddiness (Primary Dx) Social History Tobacco Use Types [...] Description 09/14/2025 11:00 AM EST Office Visit [facility] [address] [place] [address] 3rd Floor, [address] [place], [place] [phone] Spencer Lewis MD [address] [place] [address], [address] [address] [email or web address] documented as of this encounter Visit Diagnoses Diagnosis Dizziness and giddiness- Primary documented in this encounter Care Teams Psychological Stress Evaluator Relationship Specialty Start Date End Date Isael Morley DO PCP - General 07/31/17 Isael Morley DO Historical LMR Provider 07/30/17 Spencer Lewis MD [address] [place] [address] Historical LMR Provider 07/30/17 Paresh Montaño MD [address] [place] [address] Historical LMR Provider 07/30/17 Arik Peña PA-C [address] [place] [address] [facility], [place] [address] Historical LMR Provider 07/30/17 10/20/21 Ray Tong MD [address] [place] [address] Historical LMR Provider 07/30/17 2 documented as of this encounter Additional Source Comments The information contained in this document represents components of the legal health record. It is not the complete legal health record.[facility]
--- OUTSIDE RECORDS SUMMARY | 2025-07-26 10:24 | XMS_ITS | Encounter Summary ---
Author Organization [facility] Address [address] [facility] [address] [place] [address] Phone Care Team Providers Care Flatbed Driver Name Role Phone Isael Morley DO Unavailable Spencer Lewis MD Unavailable [phone] Paresh Montaño MD Unavailable [phone] Arik Peña PA-C Unavailable [phone] Ray Tong MD Unavailable [phone] Isael Morley DO Primary Care Provider [phone] Encounter Details Date Type Department Care Team (Late Contact Info) Description 06/23/2018 Ancillary Orders Virtual Department 30 [place] [address] Isael Morley DO [address] [facility] [place] [address] [place] [address] Visit for screening mammogram; Osteoporosis, unspecified osteoporosis type, unspecified pathological fracture presence Social History Tobacco Use Types Packs/Day Years [...] Description 09/14/2025 11:00 AM EST Office Visit [facility] [address] [place] [address] 3rd Floor, [address] [place] [address] Spenecr Lewis MD [address] [place] [address], [address] [place] [address] [email or web address] documented as of this encounter Results * BI MAMMOGRAM SCREENING WITH TOMOSYNTHESIS WITH CAD (BILATERAL) (10/26/2018 2:46 PM EST) Anatomical Region Laterality Modality Breast Left, Breast Right, Breast Bilateral Bila teral Mammography 10/26/2018 6:04 PM EST Impressions 10/26/2018 6:50 PM EST No findings suspicious for malignancy are identified. In the absence of a worrisome palpable abnormality, annual screening mammography is recommended. BI-RADS CATEGORY: 1 - Negative. DENSITY: The breast tissue is almost entirely fat. POS [id number] Narrative 10/26/2018 6:50 PM EST COMPARISON: 09/24/2007 through 09/01/2014 Bilateral 3-D tomosynthesis with 2-D reconstructions in the CC and MLO projection. Computer-aided detection system also utilized. No new mass, asymmetry, architectural distortion or suspicious calcifications have become apparent on either side. Procedure Note Arik Sewell MD - 10/26/2018 COMPARISON: 09/24/2007 through 09/01/2014 Bilateral 3-D tomosynthesis with 2-D reconstructions in the CC and MLOprojection. Computer-aided detection system also utilized. No new mass, asymmetry, architectural distortion or suspiciouscalcifications have become apparent on either side. IMPRESSION: No findings suspicious for malignancy are identified. In the absence of aworrisome palpable abnormality, annual screening mammography isrecommended. BI-RADS CATEGORY: 1 - Negative. DENSITY: The breast tissue is almost entirely fat. POS [email or web address] us Isael A Bigda DO IMG MG EXAMS Final Result * BD DXA AXIAL (SPINE) WITH HIP (10/26/2018 2:31 PM EST) Anatomical Region Laterality Modality Bone Density Bone Density 10/26/2018 2:34 PM EST Addenda Addendum by Adiel Lainez MD on 11/22/2018 5:17 PM EST This is a 67-year-old postmenopausal white female who is not <<< ON ESTROGEN >>> replacement therapy and does not take calcium supplements. Edited by: Rosa Francisco on 11/22/2018 3:06 PM Impressions 10/26/2018 2:35 PM EST Osteoporosis. POS - [id number] Narrative 10/26/2018 2:35 PM EST This is a 67-year-old postmenopausal white female who is not a message replacement therapy and does not take calcium supplements. She describes a perceived height loss of approximately 1/2 inch. Evaluation of the lumbar spine and hips was performed and felt to be technically adequate. Total bone mineral density in the L1-L4 vertebral bodies was calculated at 0.735 gm/cm2 with a T-score of -2.8 and Z-score of -0.8, falling within the WHO classification of osteoporosis. Total bone mineral density in the right hip was calculated at 0.721 gm/cm2 with a T-score of -1.8 and Z-score of -0.4 falling within the WHO classification of osteopenia. Total bone mineral density in the left hip was calculated at 0.784 gm/cm2 with a T-score of -1.3 and Z-score of 0.1 falling within the WHO classification of osteopenia. Procedure Note Adiel Lainez MD - 10/26/2018 This is a 67-year-old postmenopausal white female who is not a messagereplacement therapy and does not take calcium supplements. She describesa perceived height loss of approximately 1/2 inch. Evaluation of the lumbar spine and hips was performed and felt to betechnically adequate. Total bone mineral density in the L1-L4 vertebral bodies was calculated at0.735 gm/cm2 with a T-score of -2.8 and Z-score of -0.8, falling withinthe WHO classification of osteoporosis. Total bone mineral density in the right hip was calculated at 0.721 gm/ed6tjlx a T-score of -1.8 and Z-score of -0.4 falling within the WHOclassification of osteopenia. Total bone mineral density in the left hipwas calculated at 0.784 gm/cm2 with a T-score of -1.3 and Z-score of 0.1falling within the WHO classification of osteopenia. IMPRESSION: Osteoporosis. POS - [id number] Isael Morley DO IMG BD BONE DENSITY DEXA Edited Result - Final documented in this encounter Visit Diagnoses Diagnosis Visit for screening mammogram Osteoporosis, unspecified osteoporosis type, unspecified pathological fracture presence Osteoporosis, unspecified osteoporosis type, unspecified pathological fracture presence Visit for screening mammogram documented in this encounter Care Teams Flatbed Driver Relationship Specialty Start Date End Date Isael Morley DO PCP - General 07/31/17 Isael Morley DO Historical LMR Provider 07/30/17 Spencer Lewis MD [address] [place] [address] Historical LMR Provider 07/30/17 Paresh Montaño MD [address] [place] [address] Historical LMR Provider 07/30/17 Arik Peña PA-C [address] [place] [address] [facility], [place] [address] Historical LMR Provider 07/30/17 10/20/21 Ray Tong MD [address] [place] [address] [facility] [address] Historical LMR Provider 07/30/17 2 documented as of this encounter Additional Source Comments The information contained in this document represents components of the legal health record. It is not the complete legal health record.[facility]
--- OUTSIDE RECORDS SUMMARY | 2025-07-26 10:24 | XMS_ITS | Encounter Summary ---
Author Organization [facility] Address [address] [place] [address] [place] [address] Phone Care Team Providers Care Mangle Roll Operator Name Role Phone Isael Morley DO Unavailable Spencer Lewis MD Unavailable [phone] Isael Morley DO Primary Care Provider [phone] Reason for Referral * Consultation (Elective) - Closed Specialty Diagnoses / Procedures Referred By Jillian t Referred To Contact Diagnoses DASIA (obstructive sleep apnea) Isael Morley DO Phone: tel: fax: mailto:[email or web address] [address] [address] Phone: tel: Referral ID Status Reason Start Date Expiration Date Visits Re quested Visits Authorized [id number] Closed 11/05/2022 11/05/2023 1 1 Encounter Details Date Type Department Care Team (Latest Contact Info) Description 11/05/2022 Transcribe Orders [facility] [address] [place] [address] 3rd Floor, [address] [place] [address] Josh Jones MD [address] [facility], [address] [id number] [email or web address] DASIA (obstructive sleep apnea) (Primary Dx) Social History Tobacco Use Types [...] Description 09/14/2025 11:00 AM EST Office Visit [facility] [address] [place] [address] 3rd Floor, [address] [place] [address] Spencer Lewis MD [address] [place] [address] [email or web address] Scheduled Referrals Name Type Priority Associated Diagnoses Order Schedule Ambulatory referral to [facility] Sleep Medicine Outpatient Referral Routine DASIA (obstructive sleep apnea) Ordered: 11/05/2022 documented as of this encounter Visit Diagnoses Diagnosis DASIA (obstructive sleep apnea)- Primary Obstructive sleep apnea (adult) (pediatric) documented in this encounter Care Teams Mangle Roll Operator Relationship Specialty Start Date End Date Isael Morley DO PCP - General 07/31/17 Isael Morley DO Historical LMR Provider 07/30/17 Spencer Lewis MD [address] [place] [address], [address] [address] Historical LMR Provider 07/30/17 documented as of this encounter Additional Source Comments The information contained in this document represents components of the legal health record. It is not the complete legal health record.[facility]
--- OUTSIDE RECORDS SUMMARY | 2025-07-26 10:24 | XMS_ITS | Encounter Summary ---
Author Organization [facility] Address [address] [facility] [address] [place] [address] Phone Care Team Providers Care Splunk Dashboard Developer Name Role Phone Isael Morley DO Unavailable Spencer Lewis MD Unavailable Paresh Montaño MD Unavailable Arik Peña PA-C Unavailable [phone] Ray Tong MD Unavailable [phone] Isael Morley DO Primary Care Provider [phone] Encounter Details Date Type Department Care Team (Late Contact Info) Description 05/14/2019 Transcribe Orders [facility] [address] [place] [address] [id number] Isael Morley DO [address] [facility] [place] [address] Essential hypertension, malignant (Primary Dx); Screening examination for poliomyelitis Social History Tobacco Use Types Packs/Day Years [...] Description 09/14/2025 11:00 AM EST Office Visit [facility] [address] [place] [address] 3rd Floor, [address] [address] Spencer Lewis MD [address] [place] [address], [address] [address] [email or web address] documented as of this encounter Results * Hepatitis C antibody, qualitative (05/14/2019 8:35 AM EDT) Pathologist [facility] HCV NON-REACTIV E NON-REACTI VE [facility] Blood 05/14/2019 8:35 AM EDT 05/14/2019 9:04 AM EDT us Isael A Bigda DO LAB BLOOD ORDERABLES Final Resul t Performing Organization Address City/[facility] Co de Phone Number [address] [address] * Microalbumin/creatinine ratio, random urine (05/14/2019 8:35 AM EDT) [facility] URINE MICROALBUMIN <1.2 0 - 2.3 mg/dL [facility] URINE CREATININE 29 mg/dL [facility] MICROALB/CRE RATIO NOT CALCULATED 0 - 20 mg/g Cre [facility] Comment:due to Microalbumin <1.2 Urine (Urine) 05/14/2019 8:3 5 AM EDT 05/14/2019 9:04 AM EDT us Isael A Bigda DO URINE ORDERABLES Final Result [address] [address] * (ABNORMAL) Comprehensive metabolic panel (05/14/2019 8:35 AM EDT) Pathologist [facility] SODIUM 137 133 - 146 mmol/L [facility] POTASSIUM 4.6 3.3 - 5.1 mmol/L [facility] CHLORIDE 102 96 - 108 mmol/L [facility] CO2 24 21 - 35 mmol/L [facility] BUN 14 6 - 19 mg/dL [facility] CREATININE 0.60 0.5 - 1.5 mg/dL [facility] GLUCOSE 133(H) 70 - 99 mg/dL [facility] ALBUMIN 4.7 3.9 - 4.8 g/dL [facility] TOTAL PROTEIN 7.1 6.5 - 8.0 g/dL [facility] CALCIUM 10.0 8.4 - 10.3 mg/dL [facility] ALKALINE PHOSPHATASE 59 39 - 117 U/L [facility] TOTAL BILIRUBIN 0.4 0.0 - 1.2 mg/dL [facility] AST 18 0 - 37 U/L [facility] ALT 13 0 - 40 U/L [facility] GLOBULIN 2.4 1 - 4.8 g/dL [facility] EGFR 93 >59 mL/min/1.7 3m2 [facility] Comment:If patient is black, multiply result by 1.159. Estimated glomerular filtration rate calculated using the CKD-EPI equation. ANION GAP 16 10 - 20 mmol/L [facility] Blood 05/14/2019 8:35 AM EDT 05/14/2019 9:04 AM EDT us Isael A Bigda DO LAB BLOOD ORDERABLES Final Resul t [facility] [address] [place] [address] * (ABNORMAL) Lipid panel (05/14/2019 8:35 AM EDT) HDL 61 mg/dL [facility] Comment: Interpretation <40 mg/dL: Low HDL cholesterol (major risk factor for CHD) Greater than or equal to 60 mg/dL: High HDL cholesterol ( negative risk factor for CHD) HDL - cholesterol is affected by a number of factors, e.g. smoking, excerise, hormones, sex and age. CHOLESTEROL 143 0 - 240 mg/dL [facility] TRIGLYCERIDES 92 30 - 160 mg/dL [facility] LDL 64 50 - 129 mg/dL [facility] Comment: LDL levels in terms of risk for coronary heart disease: <100 mg/dL: Optimal 100-129 mg/dL: Near or above optimal 130-159 mg/dL: Borderline high 160-189 mg/dL: High >190 mg/dL: Very High CARDIAC RISK RATIO 2.3(L) 3.3 - 4.4 [facility] Blood 05/14/2019 8:35 AM EDT 05/14/2019 9:04 AM EDT us Isael Morley DO LAB BLOOD ORDERABLES Final Resul t [facility] [address] [place] [address] documented in this encounter Visit Diagnoses Diagnosis Essential hypertension, malignant- Primary Screening examination for poliomyelitis documented in this encounter Care Teams Splunk Dashboard Developer Relationship Specialty Start Date End Date Isael Morley DO PCP - General 07/31/17 Isael Morley DO Historical LMR Provider 07/30/17 Spencer Lewis MD [address] [place] [address] Historical LMR Provider 07/30/17 Paresh Montaño MD [address] [place] [address] Historical LMR Provider 07/30/17 Arik Peña PA-C [address] [place] [address] [facility], [place] [address] Historical LMR Provider 07/30/17 10/20/21 Ray Tong MD [address] [place] [address] Historical LMR Provider 07/30/17 2 documented as of this encounter Additional Source Comments The information contained in this document represents components of the legal health record. It is not the complete legal health record.[facility]
--- OUTSIDE RECORDS SUMMARY | 2025-07-26 10:24 | XMS_ITS | Encounter Summary ---
Author Organization [facility] Address [address] [facility] [address] [place] [address] Phone Care Team Providers Care Woodworking Machine Operator Name Role Phone Isael Morley DO Unavailable Spencer Lewis MD Unavailable [phone] Isael Morley DO Primary Care Provider [phone] Encounter Details Date Type Department Care Team (Latest Contact Info) Description 02/18/2022 Transcribe Orders Virtual Department 30 [place] [address] Kerline Mcgraw PA [address] [facility] [place] [address] [place] [address] Infarction of spleen (Primary Dx) Social History Tobacco Use Types [...] Description 09/14/2025 11:00 AM EST Office Visit [facility] [address] [place] [address] 3rd Floor, [address] [place] [address] Spencer Lewis MD [address] [facility], [address] [place] [address] documented as of this encounter Visit Diagnoses Diagnosis Infarction of spleen- Primary documented in this encounter Care Teams Woodworking Machine Operator Relationship Specialty Start Date End Date Peyman Isael BarajasDO [email or web address] PCP - General 07/31/17 Isael Morley DO Historical LMR Provider 07/30/17 Spencer Lewis MD [address] [place] [address], [address] [address] [email or web address] Historical LMR Provider 07/30/17 documented as of this encounter Additional Source Comments The information contained in this document represents components of the legal health record. It is not the complete legal health record.[facility]
--- OUTSIDE RECORDS SUMMARY | 2025-07-26 10:24 | XMS_ITS | Encounter Summary ---
Author Organization [facility] Address [address] [place] [address] [place] [address] Phone Care Team Providers Care Healthcare Advisory Services Manager Name Role Phone Isael Morley DO Unavailable Spencer Lewis MD Unavailable [phone] Paresh Montaño MD Unavailable [phone] Arik Peña PA-C Unavailable [phone] Ray Tong MD Unavailable [phone] Isael Morley DO Primary Care Provider [phone] Encounter Details Date Type Department Care Team (Late st Contact Info) Description 05/03/2020 Procedure Pass [facility], [address] [address] Social History Tobacco Use Types Packs/Day Years [...] on file documented as of this encounter Last Filed Vital Signs Vital Sign Reading Time Taken Comments Blood Pressure - - Pulse - - Temperature - - Respiratory Rate - - Oxygen Saturation - - Inhaled Oxygen Concentration - - Weight 68 kg (150 lb) 05/05/2020 12:37 PM EDT Height 157.5 cm (5' 2 ) 05/05/2020 12:37 PM EDT Body Mass Index 27.44 05/05/2020 12:37 PM EDT documented in this encounter Plan of Treatment Upcoming Encounters Date Type Department Care Team (Late st Contact Info) Description 09/14/2025 11:00 AM EST Office Visit [facility] [address] [place] [address] 3rd Floor, [address] [place] [address] Spencer Lewis MD [address] [place] [address] documented as of this encounter Visit Diagnoses Not on filedocumented in this encounter Care Teams Healthcare Advisory Services Manager Relationship Specialty Start Date End Date Isael Morley DO PCP - General 07/31/17 Isael Morley DO Historical LMR Provider 07/30/17 Spencer Lewis MD [address] [place] [address] Historical LMR Provider 07/30/17 Paresh Montaño MD [address] [place] [address] Historical LMR Provider 07/30/17 Arik Peña PA-C [address] [place] [address] [facility], [place] [address] Historical LMR Provider 07/30/17 10/20/21 Ray Tong MD [address] [place] [address] Historical LMR Provider 07/30/17 2 documented as of this encounter Additional Source Comments The information contained in this document represents components of the legal health record. It is not the complete legal health record.[facility]
--- OUTSIDE RECORDS SUMMARY | 2025-07-26 10:24 | XMS_ITS | Encounter Summary ---
Author Organization [facility] Address [address] [facility] [address] [place] [address] Phone Care Team Providers Care Camera Maker Name Role Phone Isael Morley DO Unavailable Spencer Lewis MD Unavailable [phone] Paresh Montaño MD Unavailable [phone] Arik Peña PA-C Unavailable [phone] Ray Tong MD Unavailable [phone] Isael Morley DO Primary Care Provider [phone] Encounter Details Date Type Department Care Team (Late st Contact Info) Description 01/06/2018 Ancillary Orders [facility], X-Ray - [address] [id number] Isael Morley DO [address] [facility] [place], [place] [id number] [email or web address] Rib pain Social History Tobacco Use Types [...] 09/14/2025 11:00 AM EST Office Visit [facility] [address] [place] [address] 3rd Floor, [address] [place], [place] [phone] Spencer Lewis MD [address] [place] [address], [address] [place] [address] [email or web address] documented as of this encounter Results * XR CHEST PA AND LATERAL 2 VIEWS (01/06/2018 1:24 PM EDT) Anatomical Region Laterality Modality Chest Radiographic Eufemia ging 01/06/2018 1:26 PM EDT Impressions 01/06/2018 1:28 PM EDT No acute pulmonary process or explanation for bilateral chest wall/rib pain is seen. S/S: Bilateral chest wall/rib pain x2 years, no trauma POS - [id number] Narrative 01/06/2018 1:28 PM EDT COMPARISON: Chest x-ray January 29, 2013 FINDINGS: PA and lateral imaging of the chest is obtained. The heart size is normal. The lung gibson are clear of acute infiltration. There is parenchymal scarring in the upper medial lung igbson bilaterally. This is stable. No pneumothorax or pleural fluid is noted. The patient has had a prior median sternotomy. The aortic contour is unchanged. There are moderate degenerative changes in the thoracic spine. Procedure Note Daniel Cuellar MD - 01/06/2018 COMPARISON: Chest x-ray January 29, 2013 FINDINGS: PA and lateral imaging of the chest is obtained. The heart size is normal. The lung gibson are clear of acute infiltration. There is parenchymalscarring in the upper medial lung gibson bilaterally. This is stable. No pneumothorax or pleural fluid is noted. The patient has had a prior median sternotomy. The aortic contour is unchanged. There are moderate degenerative changes in the thoracic spine. IMPRESSION: No acute pulmonary process or explanation for bilateral chest wall/ribpain is seen. S/S: Bilateral chest wall/rib pain x2 years, no trauma POS - [id number] us Isael A Bigda DO IMG XR CHEST Final Result documented in this encounter Visit Diagnoses Diagnosis Rib pain Unspecified chest pain Rib pain Unspecified chest pain documented in this encounter Care Teams Camera Maker Relationship Specialty Start Date End Date Isael Morley DO PCP - General 07/31/17 Peyman Isael BarajasDO Historical LMR Provider 07/30/17 Spencer Lewis MD [address] [place] [address] [email or web address] Historical LMR Provider 07/30/17 Paresh Montaño MD [address] [place] [address] Historical LMR Provider 07/30/17 Arik Peña PA-C [address] [place] [address] [facility], [place] [address] [email or web address] Historical LMR Provider 07/30/17 10/20/21 Ray Tong MD [address] [place] [address] Historical LMR Provider 07/30/17 2 documented as of this encounter Additional Source Comments The information contained in this document represents components of the legal health record. It is not the complete legal health record.[facility]
--- OUTSIDE RECORDS SUMMARY | 2025-07-26 10:24 | XMS_ITS | Encounter Summary ---
Author Organization [facility] Address [address] [facility] [address] [place] [address] Phone Care Team Providers Care Application Software Engineer Name Role Phone Isael Morley DO Unavailable Spencer Lewis MD Unavailable [phone] Isael Morley DO Primary Care Provider [phone] Encounter Details Date Type Department Care Team (Latest Contact Info) Description 01/22/2022 Transcribe Orders Virtual Department 30 [place] [address] Kerline Mcgraw PA 6 [facility] [place] [address] RUQ pain (Primary Dx) Social History Tobacco Use Types [...] Description 09/14/2025 11:00 AM EST Office Visit [facility] [address] [place] [address] 3rd Floor, [address] [place] [address] Spencer Lewis MD 22 [facility], [address] [place] [address] documented as of this encounter Results * US ABDOMEN COMPLETE (ADULT) (02/18/2022 8:50 AM EDT) Anatomical Region Laterality Modality Abdomen Ultrasound 02/18/2022 9:10 AM EDT Impressions 02/18/2022 9:21 AM EDT 1.No acute findings. 2.Stable hepatic steatosis. 3.No significant change in the chronic perisplenic hematoma allowing for differences in comparison with between the [address] could be obtained for better comparison if clinically warranted. Narrative 02/18/2022 9:21 AM EDT COMPARISON: Limited abdomen ultrasound 12/03/[address] abdomen 12/17/2017. ABDOMEN ULTRASOUND FINDINGS: Liver: Stable diffuse increased echogenicity. No focal lesions. Gallbladder: Normal. Common bile duct: Normal-5 mm. Pancreas: Limited. Imaged pancreas is normal. Pancreatic tail is obscured by bowel gas. Kidneys: Right kidney is normal. Chronic benign-appearing left upper pole cortical cyst- 1.3 cm. Spleen: Chronic perisplenic fluid collection measuring up to 1.2 cm in maximal transverse dimension compared to 1 cm. Proximal abdominal aorta/IVC/Main Portal Vein: Unremarkable. Procedure Note Law Watson MD - 02/18/2022 COMPARISON: Limited abdomen ultrasound 12/03/[address] abdomen12/17/2017. ABDOMEN ULTRASOUND FINDINGS: Liver: Stable diffuse increased echogenicity. No focal lesions. Gallbladder: Normal. Common bile duct: Normal-5 mm. Pancreas: Limited. Imaged pancreas is normal. Pancreatic tail isobscured by bowel gas. Kidneys: Right kidney is normal. Chronic benign-appearing left upper polecortical cyst-1.3 cm. Spleen: Chronic perisplenic fluid collection measuring up to 1.2 cm inmaximal transverse dimension compared to 1 cm. Proximal abdominal aorta/IVC/Main Portal Vein: Unremarkable. IMPRESSION: 1.No acute findings. 2.Stable hepatic steatosis. 3.No significant change in the chronic perisplenic hematoma allowing fordifferences in comparison with between the [address] couldbe obtained for better comparison if clinically warranted. us Kerline ROBERTSON IMG US ABDOMEN Final Resul t documented in this encounter Visit Diagnoses Diagnosis RUQ pain- Primary Abdominal pain, right upper quadrant RUQ pain Abdominal pain, right upper quadrant documented in this encounter Care Teams Application Software Engineer Relationship Specialty Start Date End Date Isael Morley DO PCP - General 07/31/17 Isael Morley DO Historical LMR Provider 07/30/17 Spencer Lewis MD [address] [place] [address], [address] [address] Historical LMR Provider 07/30/17 documented as of this encounter Additional Source Comments The information contained in this document represents components of the legal health record. It is not the complete legal health record.[facility]
--- OUTSIDE RECORDS SUMMARY | 2025-07-26 10:24 | XMS_ITS | Encounter Summary ---
Author Organization [facility] Address [address] [facility] [address] [place] [address] Phone Care Team Providers Care Process Pumper Name Role Phone Isael Morley DO Unavailable Spencer Lewis MD Unavailable [phone] Paresh Montaño MD Unavailable [phone] Arik Peña PA-C Unavailable [phone] Ray Tong MD Unavailable [phone] Isael Morley DO Primary Care Provider [phone] Encounter Details Date Type Department Care Team (Late st Contact Info) Description 11/24/2017 Ancillary Orders Virtual Department 30 [place] [address] Alta De La Cruz, VICE PRESIDENT RISK MANAGEMENT [address] [place] [address] [email or web address] Right upper quadrant pain Social History Tobacco [...] Description 09/14/2025 11:00 AM EST Office Visit [facility] [address] [place] [address] 3rd Floor, [address] [place], [place] [phone] Spencer Lewis MD [address] [place] [address], [address] [place] [address] [email or web address] documented as of this encounter Results * US ABDOMEN LIMITED RIGHT UPPER QUADRANT (12/03/2017 8:03 AM EST) Anatomical Region Laterality Modality Abdomen Ultrasound 12/03/2017 8:33 AM EST Impressions 12/03/2017 8:36 AM EST 1. No gallstones or biliary pathology. 2. Mildly echogenic liver, probably steatosis but other chronic hepatocellular disease can produce a similar appearance. POS [id number] Narrative 12/03/2017 8:36 AM EST No comparison No gallstones, gallbladder wall thickening, hyperemia or pericholecystic fluid and. No biliary dilatation. CBD 4 mm. Mild diffusely echogenic liver, likely steatosis though that was not apparent on a chest CT in 2012 and other chronic hepatocellular disease could have this appearance. No focal liver lesions or enlargement. No right-sided hydronephrosis. Procedure Note Arik Sewell MD - 12/03/2017 No comparison No gallstones, gallbladder wall thickening, hyperemia or pericholecysticfluid and. No biliary dilatation. CBD 4 mm. Mild diffusely echogenic liver, likely steatosis though that was notapparent on a chest CT in 2012 and other chronic hepatocellular diseasecould have this appearance. No focal liver lesions or enlargement. No right-sided hydronephrosis. IMPRESSION: 1. No gallstones or biliary pathology. 2. Mildly echogenic liver, probably steatosis but other chronichepatocellular disease can produce a similar appearance. POS [id number] us Alta De La Cruz VICE PRESIDENT RISK MANAGEMENT IMG US ABDOMEN Final Resul t documented in this encounter Visit Diagnoses Diagnosis Right upper quadrant pain Abdominal pain, right upper quadrant Right upper quadrant pain Abdominal pain, right upper quadrant documented in this encounter Care Teams Process Pumper Relationship Specialty Start Date End Date Isael Morley DO PCP - General 07/31/17 Isael Morley Historical LMR Provider 07/30/17 Spencer Lewis MD [address] [place] [address] [email or web address] Historical LMR Provider 07/30/17 Paresh Montaño MD [address] [place] [address] Historical LMR Provider 07/30/17 Arik Peña PA-C [address] [place] [address] [facility], [place] [address] [email or web address] Historical LMR Provider 07/30/17 10/20/21 Ray Tong MD 22 [place] [address] Historical LMR Provider 07/30/17 2 documented as of this encounter Additional Source Comments The information contained in this document represents components of the legal health record. It is not the complete legal health record.[facility]
--- OUTSIDE RECORDS SUMMARY | 2025-07-26 10:24 | XMS_ITS | Encounter Summary ---
Author Organization [facility] Address [address] [place] [address] [place] [address] Phone Care Team Providers Care Scrub Nurse Name Role Phone Isael Morley DO Unavailable Spencer Lewis MD Unavailable [phone] Paresh Montaño MD Unavailable [phone] Arik Peña PA-C Unavailable [phone] Ray Tong MD Unavailable [phone] Isael Morley DO Primary Care Provider [phone] Encounter Details Date Type Department Care Team (Late st Contact Info) Description 05/09/2020 Ancillary Orders [facility],Outside Imaging [address] [place], [place] [phone] System, Provider Not In, [place] [address] Social History Tobacco Use Types Packs/Day Years [...] Description 09/14/2025 11:00 AM EST Office Visit [facility] [address] [place] [address] 3rd Floor, [address] [place], [place] [phone] Spencer Lewis MD 22 [facility], [address] [place], [place] [phone] [email or web address] documented as of this encounter Results * CT Head Outside (No Interpretation) (04/18/2014 12:00 AM EDT) Narrative SYSTEMGENERATED, DOCUMENTATION - 05/09/2020 11:02 AM EDT This study is for PACS storage only and not for interpretation. us Provider Not In System PhD IMG OUTSIDE IMAGING W /OUT INTERPRETATION Final Result * MRI Brain Outside (No Interpretation) (04/04/2014 12:00 AM EDT) Narrative SYSTEMGENERATED, DOCUMENTATION - 05/09/2020 11:02 AM EDT This study is for PACS storage only and not for interpretation. us Provider Not In System PhD IMG OUTSIDE IMAGING W /OUT INTERPRETATION Final Result documented in this encounter Visit Diagnoses Not on filedocumented in this encounter Care Teams Scrub Nurse Relationship Specialty Start Date End Date Isael Morley DO PCP - General 07/31/17 Isael Morley DO Historical LMR Provider 07/30/17 Spencer Lewis MD [address] [place] [address] [address] [place] [address] [email or web address] Historical LMR Provider 07/30/17 Paresh Montaño MD [address] [place] [address] Historical LMR Provider 07/30/17 Arik Peña PA-C [address] [place] [address] [facility], [place] [address] [email or web address] Historical LMR Provider 07/30/17 10/20/21 Ray Tong MD [address] [facility] [place] [address] Historical LMR Provider 07/30/17 2 documented as of this encounter Additional Source Comments The information contained in this document represents components of the legal health record. It is not the complete legal health record.[facility]
--- OUTSIDE RECORDS SUMMARY | 2025-07-26 10:24 | XMS_ITS | Encounter Summary ---
Author Organization [facility] Address [address] [place] [address] Phone Care Team Providers Care Hand Lens Polisher Name Role Phone Isael Morley DO Unavailable Spencer Lewis MD Unavailable Paresh Montaño MD Unavailable Arik Peña PA-C Unavailable [phone] Ray Tong MD Unavailable [phone] Isael Morley DO Primary Care Provider [phone] Encounter Details Date Type Department Care Team (Late Contact Info) Description 05/29/2020 Transcribe Orders Virtual Department [address] [place] [address] Isael Morley DO [address] [place] [address] [place] [address] Dizziness and giddiness (Primary Dx) Social History [...] Description 09/14/2025 11:00 AM EST Office Visit [facility] [address] [place] [address] 3rd Floor, [address] [place], [place] [id number] Spencer Lewis MD [address] [place] [address], [address] [address] [email or web address] documented as of this encounter Visit Diagnoses Diagnosis Dizziness and giddiness- Primary documented in this encounter Care Teams Hand Lens Polisher Relationship Specialty Start Date End Date Isael Morley DO PCP - General 07/31/17 Isael Morley DO Historical LMR Provider 07/30/17 Spencer Lewis MD [address] [place] [id number] Historical LMR Provider 07/30/17 Paresh Montaño MD [address] [place] [address] Historical LMR Provider 07/30/17 Arik Peña PA-C [address] [place] [address] [facility], [place] [address] Historical LMR Provider 07/30/17 10/20/21 Ray Tong MD [address] [place] [address] Historical LMR Provider 07/30/17 2 documented as of this encounter Additional Source Comments The information contained in this document represents components of the legal health record. It is not the complete legal health record.[facility]
--- OUTSIDE RECORDS SUMMARY | 2025-07-26 10:24 | XMS_ITS | Encounter Summary ---
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 Name Role Phone Isael Morley DO Unavailable Spencer Lewis MD Unavailable [phone] Paresh Montaño MD Unavailable [phone] Arik Peña PA-C Unavailable [phone] Ray Tong MD Unavailable [phone] Isael Morley DO Primary Care Provider [phone] Reason for Referral * MRI/CAT Scan - Closed Specialty Diagnoses / Procedures Referred By Jillian vance Referred To Contact Radiology Diagnoses Dizziness and giddiness Vertigo Procedures MRI Brain MRI Brain Isael Morley DO Phone: tel: fax: [email or web address] Referral ID Status Reason Start Date Expiration Date Visits Re quested Visits Authorized [id number] Closed 05/03/2020 05/03/2021 1 1 Encounter Details Date Type Department Care Team (Late st Contact Info) Description 05/03/2020 Ancillary Orders Virtual Department [address] [place] [address] Isael Morley DO [address] [place] [address] [email or web address] Dizziness and giddiness; Vertigo Social History Tobacco Use Types Packs/Day Years [...] Description 09/14/2025 11:00 AM EST Office Visit [facility] [address], [address] [place] [address] Spencer Lewis MD [address], [address] [place], [place] [id number] [email or web address] documented as of this encounter Results * MRI BRAIN WITHOUT CONTRAST (05/09/2020 3:07 PM EDT) Anatomical Region Laterality Modality Head Magnetic Resonan ce 05/09/2020 3:10 PM EDT Impressions 05/09/2020 3:23 PM EDT No significant intracranial changes from 04/04/2014. New mastoid reaction on the left which can be correlated with signs of vertigo. POS - [id number] Narrative 05/09/2020 3:23 PM EDT HISTORY: Chronic dizziness and vertigo, recently worsening. COMPARISON: MRI brain 04/04/14. TECHNIQUE: Exam performed on a 1.5 Elodia high field MRI scanner. Sagittal and axial T1, axial FSE T2, T2 FLAIR, diffusion weighted and ADC map sequences were obtained. FINDINGS: No evidence of intracranial hemorrhage, hematoma or mass. Emanuel-white matter differentiation is preserved. No signs of acute infarction. Moderate patchy T2 hyperintense change in the supratentorial white matter bilaterally appears essentially stable and is most consistent with chronic small vessel ischemia. The ventricles are stable in size and configuration. The basal cisterns are patent. The internal auditory canals appear normal. There are normal flow voids at the base of the skull. Visualized paranasal sinuses are clear. Fluid within mastoid air cells on the left. This is a change from 04/04/2014. Procedure Note Amarjit Quintanilla MD - 05/09/2020 HISTORY: Chronic dizziness and vertigo, recently worsening. COMPARISON: MRI brain 04/04/14. TECHNIQUE: Exam performed on a 1.5 Elodia high field MRI scanner. [place] axial T1, axial FSE T2, T2 FLAIR, diffusion weighted and ADC mapsequences were obtained. FINDINGS: No evidence of intracranial hemorrhage, hematoma or mass. Emanuel-whitematter differentiation is preserved. No signs of acute infarction. Moderate patchy T2 hyperintense change in the supratentorial white matterbilaterally appears essentially stable and is most consistent with chronicsmall vessel ischemia. The ventricles are stable in size and configuration. The basal cisternsare patent. The internal auditory canals appear normal. There are normal flow voids at the base of the skull. Visualized paranasal sinuses are clear. Fluid within mastoid air cells on the left. This is a change from04/04/2014. IMPRESSION: No significant intracranial changes from 04/04/2014. New mastoid reactionon the left which can be correlated with signs of vertigo. POS - [id number] Isael Morley DO IM MR HEAD/NECK Final Result documented in this encounter Visit Diagnoses Diagnosis Dizziness and giddiness Vertigo Dizziness and giddiness Dizziness and giddiness Vertigo Dizziness and giddiness documented in this encounter Care Teams Fondant Machine Operator Relationship Specialty Start Date End Date Isael Morley DO PCP - General 07/31/17 Isael Morley DO [email or web address] Historical LMR Provider 07/30/17 Spencer Lewis MD [address] [place] [address], [facility] [address] [place] [address] Historical LMR Provider 07/30/17 Paresh Montaño MD [address] [place] [address] Historical LMR Provider 07/30/17 Arik Peña PA-C [address] [place] [address] [facility], [place] [address] Historical LMR Provider 07/30/17 10/20/21 Ray Tong MD [address] [place] [id number] Historical LMR Provider 07/30/17 2 documented as of this encounter Additional Source Comments The information contained in this document represents components of the legal health record. It is not the complete legal health record.[facility]
[2025-07-26 13:46] LABS: Hemoglobin A1C 252.2296 umol/L; Total Hemoglobin (HGBA1C) 3749.1132 umol/L
[2025-07-26 13:56] LABS: Alanine Aminotransferase 18 U/L (0-31); Albumin Level 4.5 g/dL (3.5-5.0); Anion Gap 13 (12-20); Aspartate Amino Transferase 20 U/L (5-31); Blood Urea Nitrogen 18 mg/dL (9-16); Calcium 9.1 mg/dL (8.4-10.2); Carbon Dioxide 25 mmol/L (22-29); Chloride 107 mmol/L (96-108); Cholesterol 161 mg/dL (<200); Estimated Glomerular Filt Rate > 60; HDL Cholesterol 47 mg/dL (>40); Potassium 4.4 mmol/L (3.3-5.1); Sodium 141 mmol/L (135-145); Total Protein 6.9 g/dL (6.5-8.0); Triglycerides 118 mg/dL (<150)
[2025-07-26 14:08] LABS: Alkaline Phosphatase 68 U/L (39-117)
== END 2025-07-26 09:26 | disposition home or self-care (01) ==
LOC: HO.MANLDS 09:25
PROVIDERS: Visit Provider Internal Medicine
DX: E11.9 Type 2 diabetes mellitus without complications (principal)
CPT/HCPCS: 36415; 80053; 80061; 83036

== ENCOUNTER 2025-08-01 11:16 | Outpatient (REF) | payer MEDICARE, SELFPAY ==
[2025-08-01 14:12] LABS: Microalbum/Creatinine Ratio Ur 21.6 ug/mg cr (<30)
== END 2025-08-01 11:17 | disposition home or self-care (01) ==
LOC: HO.MANLDS 11:16
PROVIDERS: Visit Provider Internal Medicine
DX: E11.9 Type 2 diabetes mellitus without complications (principal)
CPT/HCPCS: 82043; 82570